=== PATIENT | male | born 1995 | race Caucasian/White ===

== ENCOUNTER → 2017-02-24 | Outpatient (CLI) | payer MEDICARE, OTHER ==
[~2017-02-24] MED LIST: AMPDEX10CR; AMPDEX15CR; AMPDEX5; ARIP10; ARIP10 PO; ARIP20 PO; ARIP30 PO; Amoxicillin500 MG PO; Augmentin 875-1 EACH PO; BENADRYL25 MG PO; BENZ100A PO; Bactrim Ds Tab1 EACH PO; CEPH500 PO; CETI5 PO; CHOL10002 PO; CLINDAMYCIN PHO TOP; Cipro500 MG PO; Crutch1 EACH MISC; DIPH12.5EL PO; DIPH50 PO; DIVA250ER; ERYT.5TO LEFTEYE; FAMO20 PO; GUAN1; HYDCOR1TC TOP; HYDR1TAB94 PO; HYDR25SUP PR; HYDROCORTISONE1.5 GM TOP; IBUP800 PO; LEVSOD50 PO; LITH300C PO; LITH450ER PO; LOPE2C PO; Levothyroxine200 MCG PO; NALT50; NAPR500 PO; NYST237S MT; Naprosyn500 MG PO; Nystatin15 GM TP; OLAN2.5 PO; PROM12.5S PR; Pepcid40 MG PO; Permethrin60 GM TP; QUET300; RISP1; Symbyax 12-251 EACH PO; TENEX1 MG PO; TOPI25 PO; TRAM50 PO; TRAZ50 PO; Tenex1 MG GT; Ultram50 MG PO; Veetids 500500 MG PO; Zofran Odt4 MG SL; [UNRECOGNIZED DRUG - CODE] PO
[2017-02-24 10:09] LABS: BASOPHILS ABSOLUTE AUTO 0.06 K/mm3 (0.00-0.23); BASOPHILS PERCENT AUTO 1 % (0-2); EOSINOPHILS ABSOLUTE AUTO 0.07 K/mm3 (0.00-0.68); EOSINOPHILS PERCENT AUTO 1 % (0-6); Hematocrit 47.6 % (37.0-53.0); Hemoglobin 16.8 g/dL (13.5-17.5); IMMATURE GRAN ABSOLUTE AUTO 0.02 K/mm3 (0.00-0.10); IMMATURE GRAN PERCENT AUTO 0 % (0-1); LYMPHOCYTES ABSOLUTE AUTO 2.43 K/mm3 (0.84-5.20); LYMPHOCYTES PERCENT AUTO 29 % (21-46); MONOCYTES ABSOLUTE AUTO 0.68 K/mm3 (0.16-1.47); MONOCYTES PERCENT AUTO 8 % (4-13); Mean Corpuscular HGB 30.7 pg (26.0-34.0); Mean Corpuscular HGB Conc 35.3 g/dL (31.5-36.5); Mean Corpuscular Volume 87 fL (80-100); Mean Platelet Volume 9.5 fL (9.1-12.4); NEUTROPHILS ABSOLUTE AUTO 5.23 K/mm3 (1.96-9.15); NEUTROPHILS PERCENT AUTO 62 % (41-73); Platelet Count 307 K/mm3 (150-400); RDW Coefficient Variation 12.9 % (11.7-14.2); RDW Standard Deviation 40.6 fL (35.1-46.3); Red Blood Cell Count 5.48 M/mm3 (4.30-5.90); White Blood Cell Count 8.49 K/mm3 (4.00-11.30)
[2017-02-24 10:24] LABS: Alanine Aminotransfer (ALT/SGP 43 U/L (12-78); Albumin, Blood 4.2 g/dL (3.4-5.0); Albumin/Globulin Ratio 1.1 (0.8-1.8); Alk Phos 85 U/L (40-126); Anion Gap 11 mmol/L (6-16); Aspartate Aminotrans (AST/SGOT 28 U/L (12-37); Bilirubin, Total 0.7 mg/dL (0.1-1.0); Blood Urea Nitrogen 12 mg/dL (8-24); CO2, Blood 25 mmol/L (21-32); Calcium, Blood 9.8 mg/dL (8.5-10.1); Chloride, Blood 103 mmol/L (98-108); Glomerular Filtration Rate >60 (60-); Glucose, Blood 105 mg/dL (70-99); Magnesium, Blood 1.9 mg/dL (1.6-2.4); Sodium, Blood 139 mmol/L (136-145); Total Protein, Blood 8.2 g/dL (6.4-8.2)
== END | disposition home or self-care (01) ==
LOC: LAB EV 10:05
PROVIDERS: Physician Assistant Medical
DX: M79.604 Pain in right leg (principal); R22.42 Localized swelling, mass and lump, left lower limb
CPT/HCPCS: 80053; 83735; 85025

== ENCOUNTER → 2017-03-08 | Outpatient (CLI) | payer MEDICARE, OTHER ==
[2017-03-10 10:45] LABS: Antinuclear Antibody Screen Negative (Negative)
== END ==
LOC: LAB SHORT 15:10
PROVIDERS: Physician Assistant Medical
DX: R21 Rash and other nonspecific skin eruption (principal)
CPT/HCPCS: 86038

== ENCOUNTER 2017-04-14 23:00 | Emergency (ER) | payer MEDICARE, OTHER ==
[~2017-04-14] VITALS: Ht 175.3 cm; Wt 113.4 kg
[~2017-04-14 23:00] MED LIST changes: -BENZ100A PO; -HYDROCORTISONE1.5 GM TOP; -IBUP800 PO; -NYST237S MT; -Pepcid40 MG PO; -Zofran Odt4 MG SL
[2017-04-14] MEDS ORDERED: NYST237S MT (23:17)
[2017-04-14] MEDS ORDERED: Amoxicillin500 MG PO (23:17)
[2017-12-12] MEDS ORDERED: Pepcid40 MG PO (20:35)
[2017-12-12] MEDS ORDERED: BENADRYL25 MG PO (20:35)
[2017-12-12] MEDS ORDERED: HYDROCORTISONE1.5 GM TOP (20:35)
== END 2017-04-14 23:26 | disposition home or self-care (01) ==
LOC: ER 23:00
DX: R68.84 Jaw pain (principal); K08.89 Other specified disorders of teeth and supporting structures; Z88.8 Allergy status to other drugs, medicaments and biological substances; Z88.5 Allergy status to narcotic agent; F31.9 Bipolar disorder, unspecified
CPT/HCPCS: 99283

== ENCOUNTER 2017-04-17 07:56 | Emergency (ER) | payer MEDICARE, OTHER ==
[~2017-04-17] VITALS: Ht 177.8 cm; Wt 113.4 kg
[~2017-04-17 07:56] MED LIST changes: +NYST237S MT
[2017-12-12] MEDS ORDERED: Pepcid40 MG PO (20:35)
[2017-12-12] MEDS ORDERED: HYDROCORTISONE1.5 GM TOP (20:35)
[2017-12-12] MEDS ORDERED: BENADRYL25 MG PO (20:35)
== END 2017-04-17 08:27 | disposition home or self-care (01) ==
LOC: ER 07:56
DX: Z00.8 Encounter for other general examination (principal); Z91.09 Other allergy status, other than to drugs and biological substances; Z88.5 Allergy status to narcotic agent; Z88.8 Allergy status to other drugs, medicaments and biological substances
CPT/HCPCS: 99282

== ENCOUNTER 2017-06-22 08:46 | Emergency (ER) | payer MEDICARE, OTHER ==
[~2017-06-22] VITALS: Ht 177.8 cm; Wt 115.7 kg
[2017-06-22] MEDS ORDERED: IBUP800 PO (09:32)
== END 2017-06-22 09:42 | disposition home or self-care (01) ==
LOC: ER 08:46
DX: G56.22 Lesion of ulnar nerve, left upper limb (principal); Z88.8 Allergy status to other drugs, medicaments and biological substances; Z88.5 Allergy status to narcotic agent; F31.9 Bipolar disorder, unspecified
CPT/HCPCS: 99282

== ENCOUNTER 2017-07-24 20:47 | Emergency (ER) | payer MEDICARE, OTHER ==
[~2017-07-24] VITALS: Ht 177.8 cm; Wt 120.7 kg
[~2017-07-24 20:47] MED LIST changes: +IBUP800 PO
== END 2017-07-24 21:56 | disposition home or self-care (01) ==
LOC: ER 20:47
DX: S60.112A Contusion of left thumb with damage to nail, initial encounter (principal); Z88.8 Allergy status to other drugs, medicaments and biological substances; Z91.09 Other allergy status, other than to drugs and biological substances; Z88.5 Allergy status to narcotic agent; W23.0XXA Caught, crushed, jammed, or pinched between moving objects, initial encounter
CPT/HCPCS: 73140

== ENCOUNTER 2017-08-26 09:04 | Emergency (ER) | payer MEDICARE, OTHER ==
[~2017-08-26] VITALS: Ht 177.8 cm; Wt 117.9 kg
== END 2017-08-26 09:53 | disposition home or self-care (01) ==
LOC: ER 09:04
DX: R51 Headache (principal); Z88.8 Allergy status to other drugs, medicaments and biological substances; Z88.5 Allergy status to narcotic agent; F31.9 Bipolar disorder, unspecified
CPT/HCPCS: 99282

== ENCOUNTER 2017-11-19 15:21 | Emergency (ER) | payer MEDICARE, OTHER ==
[~2017-11-19] VITALS: Ht 177.8 cm; Wt 120.2 kg
[2017-11-19] MEDS ORDERED: BENZ100A PO (15:54)
[2017-11-20] MEDS ORDERED: Zofran Odt4 MG SL (10:49)
== END 2017-11-19 15:58 | disposition home or self-care (01) ==
LOC: ER 15:21
DX: J06.9 Acute upper respiratory infection, unspecified (principal); F31.9 Bipolar disorder, unspecified; Z88.8 Allergy status to other drugs, medicaments and biological substances; Z91.09 Other allergy status, other than to drugs and biological substances; Z88.5 Allergy status to narcotic agent
CPT/HCPCS: 99283

== ENCOUNTER 2017-11-20 08:23 | Emergency (ER) | payer MEDICARE, OTHER ==
[~2017-11-20] VITALS: Ht 177.8 cm; Wt 120.2 kg
[~2017-11-20 08:23] MED LIST changes: +BENZ100A PO
[2017-11-20] MEDS ORDERED: Zofran Odt4 MG SL (10:49)
== END 2017-11-20 11:20 | disposition home or self-care (01) ==
LOC: ER 08:23
DX: J06.9 Acute upper respiratory infection, unspecified (principal); Z88.8 Allergy status to other drugs, medicaments and biological substances; Z91.09 Other allergy status, other than to drugs and biological substances; Z88.5 Allergy status to narcotic agent
CPT/HCPCS: 96372; 99283; J1885

== ENCOUNTER 2018-02-22 10:59 | Emergency (ER) | payer MEDICARE ==
[~2018-02-22] VITALS: Ht 177.8 cm; Wt 124.7 kg
[~2018-02-22 10:59] MED LIST changes: +HYDROCORTISONE1.5 GM TOP; +Pepcid40 MG PO; +Zofran Odt4 MG SL
[2018-02-22 12:00] LABS: BASOPHILS ABSOLUTE AUTO 0.06 K/mm3 (0.00-0.23); BASOPHILS PERCENT AUTO 1 % (0-2); EOSINOPHILS ABSOLUTE AUTO 0.11 K/mm3 (0.00-0.68); EOSINOPHILS PERCENT AUTO 1 % (0-6); Hematocrit 47.8 % (37.0-53.0); IMMATURE GRAN ABSOLUTE AUTO 0.03 K/mm3 (0.00-0.10); IMMATURE GRAN PERCENT AUTO 0 % (0-1); LYMPHOCYTES ABSOLUTE AUTO 1.97 K/mm3 (0.84-5.20); LYMPHOCYTES PERCENT AUTO 21 % (21-46); MONOCYTES PERCENT AUTO 14 % (4-13); Mean Corpuscular HGB 29.7 pg (26.0-34.0); Mean Corpuscular HGB Conc 33.5 g/dL (31.5-36.5); Mean Corpuscular Volume 89 fL (80-100); Mean Platelet Volume 9.3 fL (9.1-12.4); NEUTROPHILS ABSOLUTE AUTO 5.99 K/mm3 (1.96-9.15); NEUTROPHILS PERCENT AUTO 63 % (41-73); Platelet Count 276 K/mm3 (150-400); RDW Standard Deviation 42.4 fL (35.1-46.3); Red Blood Cell Count 5.39 M/mm3 (4.30-5.90); White Blood Cell Count 9.46 K/mm3 (4.00-11.30)
[2018-02-22 12:11] LABS: Alanine Aminotransfer (ALT/SGP 36 U/L (12-78); Albumin, Blood 4.2 g/dL (3.4-5.0); Albumin/Globulin Ratio 1.1 (0.8-1.8); Alk Phos 84 U/L (50-136); Anion Gap 6 mmol/L (6-16); Aspartate Aminotrans (AST/SGOT 30 U/L (12-37); Bilirubin, Total 0.5 mg/dL (0.1-1.0); Blood Urea Nitrogen 11 mg/dL (8-24); Bun/Creatinine Ratio 12.2 (12.0-20.0); CO2, Blood 26 mmol/L (21-32); Calcium, Blood 9.1 mg/dL (8.5-10.1); Chloride, Blood 104 mmol/L (98-108); Globulin, Blood 3.8 g/dL (2.2-4.0); Glomerular Filtration Rate >60 (60-); Glucose, Blood 81 mg/dL (70-99); Potassium, Blood 3.9 mmol/L (3.5-5.5); Sodium, Blood 136 mmol/L (136-145)
[2018-02-22 13:55] LABS: Source, Urine Clean Catch
[2018-02-22 14:13] LABS: Bilirubin, Urine Neg (Neg); Blood, Urine Neg (Neg); Glucose Qualitative, Urine Neg (Neg); Ketones, Urine Neg (Neg); Leukocyte Esterase, Urine Neg (Neg); Nitrite, Urine Neg (Neg); Protein, Urine Neg (Neg); Urobilinogen, Urine NORM (Normal); pH, Urine 6.5 (5.0-8.0)
[2018-02-22 14:23] LABS: Appearance, Urine Clear (Clear); Color, Urine Yellow (P-Yellow)
== END 2018-02-22 14:32 | disposition home or self-care (01) ==
LOC: ER 10:59
PROVIDERS: Emergency Medicine; Physician Assistant
DX: R11.2 Nausea with vomiting, unspecified (principal)
CPT/HCPCS: 36415; 80053; 81003; 85025; 96361; 96374; 99284-25; J2405; J7030

== ENCOUNTER → 2022-05-06 | Outpatient (CLI) | payer MEDICARE ==
[2022-05-09 20:10] LABS: CHLAMYDIA BY NAA Negative (Negative); GONOCOCCUS BY NAA Negative (Negative); TRICH VAG BY NAA Negative (Negative)
== END | disposition home or self-care (01) ==
LOC: LAB SHORT 17:20
PROVIDERS: Family Medicine
DX: Z11.3 Encounter for screening for infections with a predominantly sexual mode of transmission (principal)
CPT/HCPCS: 87491; 87591; 87661

== ENCOUNTER 2022-08-09 18:56 | Emergency (ER) | payer MEDICARE, OTHER ==
[~2022-08-09] VITALS: Ht 177.8 cm; Wt 122.5 kg
[2022-08-09 19:06] VITALS: BP 163/102
[2022-08-09] MEDS ORDERED: AMOCLA875 PO (19:58)
== END 2022-08-09 20:10 | disposition home or self-care (01) ==
LOC: ER 18:56
DX: K04.7 Periapical abscess without sinus (principal); Z88.8 Allergy status to other drugs, medicaments and biological substances; Z88.5 Allergy status to narcotic agent
CPT/HCPCS: 64400; 99282-25